=== PATIENT | female | born 1960 | race Caucasian/White ===

== ENCOUNTER → 2017-07-28 | Day surgery (SDC) | payer OTHER ==
[~2017-07-28] MED LIST: ATEN-100 PO; BUPIVACAINE HCL PF 0.25% 30 ML VIAL ONE; HYDRO50 PO; KETOROLAC TROMETHAMINE 30 MG/ML (IVP) VIAL IV PUSH ONE; LACTATED RINGER'S 1000 ML INJ 1,000 ML ONE; LEVO.1 PO; LOSA25TA31 PO; METF500 PO; MIDAZOLAM HCL 2 MG/2 ML VIAL ONE; ONDANSETRON HCL 4 MG/2 ML VIAL IV PUSH ONE; PRIL20CA PO; PROPOFOL 200 MG/20 ML AMP IV ONE; PROT40IN PO; TRIAMCINOLONE ACETONIDE 40 MG/ML VIAL ONE; ULTR50TA PO; ceFAZolin 2 GM PREMIX 50 ML ONE
--- NOTE | 2017-07-28 17:40 | MP ---
cc: VAIBHAV ALMANZA. DPM DATE OF SURGERY 07/28/17 PREOPERATIVE DIAGNOSIS Left foot second interspace neuroma. POSTOPERATIVE DIAGNOSIS Left foot second interspace neuroma. PROCEDURES PERFORMED Resection of left foot second interspace neuroma. SPECIMEN Mass, likely neuroma. ESTIMATED BLOOD LOSS Less than 30 mL INJECTABLES 20 mL of 0.25% Marcaine plain and 0.5 mL of Kenalog 40. ANESTHESIA General with local DRAINS None TOURNIQUET TIME 20 minutes at a setting of 215 mmHg PLAN OF ACTIVITY PACU then DC home once stable per same-day surgery criteria. JUSTIFICATION FOR PROCEDURE A pleasant 56-year-old female with chronic second interspace pain. Ultimately, the MRI showed back negative, however, the nerve type pain may be highly suspicious that the neuroma still insisted. We devised a plan to move fourth with resection of the nerve, but the patient understood that there may be a chance of need for more surgery at a later date including but not limited to first and third interspace neurectomy and possible hammertoe repair. No guarantees were given or implied regarding the outcome. PROCEDURE IN DETAIL Under mild sedation, the patient was brought into the operating room, placed on the operating table in the supine position. Following the induction of general anesthesia, local anesthesia was obtained about the left forefoot utilizing standard block fashion. Left foot was then scrubbed, prepped and draped in the usual aseptic fashion. The foot was elevated, exsanguinated and the previously placed mid ankle tourniquet was inflated at 215 mmHg. An incision was made over the base of the second digit which curved into the second interspace. Sharp and blunt dissection was carried down through dorsal epidermis and dermal junction. Venous structures were Bovied and ligated as deemed necessary. No dorsal neurovascular structures were harmed. The dissection took place down to the level of the second and third intermetatarsal ligament which was severed revealing a prominent broad and flattened nerve. The nerve was then dissected out to its bifurcation at the lateral aspect the second digit and the medial aspect of the third digit. The neuroma presumed was then retracted as far distally as possible, injected with 0.5 mL of Kenalog 40 and then severed allowing for retraction within the interossei musculature. The nerve was then sent for pathological analysis as is was removed as it bifurcated. The patient then was flushed with copious amounts of normal saline. Deep closure took place utilizing Vicryl. Skin was closed utilizing nylon. Upon relieving the tourniquet, there was a prompt hyperemic response to all digits without any delayed capillary fill time. The patient was extubated uneventfully, transferred from OR to PACU with all vital signs stable. She will ice, elevate. She is heel weightbear within a postoperative shoe. I will see the patient within 3-5 days. CHRISTO Silva/ /1:19 PM /5:34 PM
== END | disposition home or self-care (01) ==
LOC: ESDC 11:04
PROVIDERS: ATTEND Podiatrist Foot & Ankle Surgery
DX: G57.62 Lesion of plantar nerve, left lower limb (principal)
CPT/HCPCS: 01470; 28080; 88304; J0690; J1885; J2250; J2405; J3010; J3301; J7120